=== PATIENT | male | born 1990 | race African-American/Black ===

== ENCOUNTER 2017-08-27 11:00 | Emergency (ER) | payer OTHER ==
[2017-08-27] MEDS: IBUPROFEN 800 MG TAB PO (13:17)
[2017-08-27 13:24] LABS: URINE BLOOD (Dip) POC Trace-intact (NEGATIVE); URINE GLUCOSE (Dip) POC Negative (NEGATIVE); URINE KETONES (Dip) POC Negative (NEGATIVE); URINE LEUKOCYTE EST (Dip) POC 1+ (NEGATIVE); URINE NITRITE (Dip) POC Negative (NEGATIVE); URINE TOTAL PROTEIN POC Negative (NEGATIVE)
== END 2017-08-27 14:34 | disposition home or self-care (01) ==
LOC: E/R 11:00 → FTE 14:34
DX: R07.81 Pleurodynia (principal); F17.210 Nicotine dependence, cigarettes, uncomplicated
CPT/HCPCS: 71045; 71100; 81003; 87086; 99283-25